=== PATIENT | female | born 1965 | race Caucasian/White ===

== ENCOUNTER 2017-07-01 12:02 | Emergency (ER) | payer BC, OTHER ==
[~2017-07-01] VITALS: Ht 162.6 cm; Wt 75.9 kg
[2017-07-01 12:05] VITALS: BP 172/80; PULSE 81; RESP 16; TEMP 98.7; O2SAT 99
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
== END 2017-07-01 14:00 ==
LOC: NEPD 12:02
DX: S00.83XA Contusion of other part of head, initial encounter (principal); S16.1XXA Strain of muscle, fascia and tendon at neck level, initial encounter; Y09 Assault by unspecified means
CPT/HCPCS: 70450; 70486; 72125; 99284; L0150